=== PATIENT | female | born 1965 | race Hispanic/Latino ===

== ENCOUNTER 2020-02-16 16:57 | Emergency (ER) | payer SELFPAY ==
[2020-02-16] MEDS ORDERED: Ketorolac Tromethamine 30 MG/ML VIAL ONE (17:26)
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
== END 2020-02-16 19:43 | disposition home or self-care (01) ==
LOC: ERS 16:57
DX: S13.9XXA Sprain of joints and ligaments of unspecified parts of neck, initial encounter (principal); S40.012A Contusion of left shoulder, initial encounter; R51 Headache; V89.2XXA Person injured in unspecified motor-vehicle accident, traffic, initial encounter
CPT/HCPCS: 70450; 96374; J1885